=== PATIENT | female | born 1965 | race Caucasian/White ===

== ENCOUNTER 2022-05-11 11:01 | Emergency (ER) | payer OTHER ==
[~2022-05-11] VITALS: Ht 175.3 cm; Wt 83.9 kg
--- NOTE | 2022-05-11 11:10 | NUR ---
RECEIVED PT 57 YRS FEMALE CAME FROM HOME ACCOMPAY BY BOUGHTER c/o lower abdominal pain for 2 days
--- NOTE | 2022-05-11 11:14 | NUR ---
URINE SAMPLE COLLECTED
--- NOTE | 2022-05-11 11:20 | NUR ---
SEEN BY DR FLORES
--- NOTE | 2022-05-11 11:31 | NUR ---
BLOOD DROW BY LAB AT BED SIDE
[2022-05-11 11:37] LABS: BASOPHILS % (AUTO) 0.4 % (0.0-2.0); EOSINOPHILS % (AUTO) 0.3 % (0.0-6.0); HEMATOCRIT 37 % (33-45); HEMOGLOBIN 11.9 g/dL (11.5-14.8); LYMPHOCYTES % (AUTO) 34.4 % (20.0-44.0); MEAN CORPUSCULAR HGB CONC 33 g/dl (31.0-36.0); MEAN CORPUSCULAR VOLUME 81 fL (82-100); MONOCYTES # (AUTO) 0.3 K/uL (0.1-1.30); MONOCYTES % (AUTO) 5.7 % (2.0-12.0); NEUTROPHILS # (AUTO) 3.4 K/uL (1.8-8.9); NEUTROPHILS % (AUTO) 59.2 % (43.0-81.0); PLATELET COUNT (AUTO) 308 K/uL (150-450); RED BLOOD CELL COUNT(AUTO) 4.51 MIL/uL (4.0-5.2); WHITE BLOOD COUNT (AUTO) 5.7 K/uL (4.3-11.0)
--- NOTE | 2022-05-11 11:52 | NUR ---
TO CT SCAN OF ABDOMIN VIA DIANA
[2022-05-11 11:56] LABS: BILIRUBIN,URINE NEGATIVE (NEGATIVE); COLOR,URINE YELLOW (YELLOW); LEUKOCYTE ESTERASE ,URINE SMALL (NEGATIVE); NITRITE, URINE POSITIVE (NEGATIVE); PH,URINE 5.5 (5.0-8.0); PROTEIN,URINE NEGATIVE (NEGATIVE); UGLUCOSE NEGATIVE (NEGATIVE); UROBILINOGEN,URINE 0.2 EU/dL (0.2)
[2022-05-11 11:56] LABS: CALCIUM, SERUM 8.9 mg/dL (8.5-10.1); CREATININE 0.9 mg/dL (0.6-1.3); POTASSIUM 4.6 mmol/L (3.5-5.1)
--- NOTE | 2022-05-11 12:00 | NUR ---
BACK FROM CT SCAN DONE
[2022-05-11 12:08] LABS: ALBUMIN 3.1 g/dL (3.4-5.0); BILIRUBIN,DIRECT 0.1 mg/dL (0.0-0.2); BILIRUBIN,TOTAL 0.3 mg/dL (0.2-1.0); TOTAL PROTEIN, SERUM 7.6 g/dL (6.4-8.2)
[2022-05-11 12:16] LABS: BACTERIA,URINE Many /HPF (None Seen); SQUAMOUS EPITHELIAL CELL,UR Moderate /HPF (None Seen)
[2022-05-11] MEDS ORDERED: IBUPROFEN 600 MG TABLET ONE ×2 (13:18→13:21)
[2022-05-11] MEDS ORDERED: CEPHALEXIN MONOHYDRATE 500 MG CAPSULE PO ONE ×2 (13:18→13:30)
[2022-05-11] MEDS ORDERED: IBUP-1955 PO (13:22)
[2022-05-11] MEDS ORDERED: CEPH500C2 PO (13:22)
[2022-05-11] MEDS ORDERED: IBUPROFEN 600 MG TABLET PO ONE (13:30)
--- NOTE | 2022-05-11 13:40 | NUR ---
dinese pain d/c instraction given to pt fully and verblized understood d/chome stable condition
[2022-05-11 13:46] VITALS: BP 162/89
== END 2022-05-11 13:47 | disposition home or self-care (01) ==
LOC: ER 11:09
DX: N39.0 Urinary tract infection, site not specified (principal)
CPT/HCPCS: 36415; 80048-TC; 80076-TC; 81001; 83690-TC; 85025-TC; 87086-TC; 87186-TC

== ENCOUNTER → 2024-03-30 | Emergency (ER) | payer OTHER ==
[~2024-03-30] VITALS: Ht 180.3 cm; Wt 90.7 kg
[~2024-03-30] MED LIST: AMOX-430 PO; CEPH500C2 PO; IBUP-1955 PO; PIPERACI/TAZO 3.375GM/D5W 50ML PB IV ONE; POTA-88 PO; POTASSIUM CHLORIDE 20 MEQ TAB.PRT.SR PO ONE
[2024-03-30 15:07] LABS: BASOPHILS % (AUTO) 0.1 % (0.0-2.0); EOSINOPHILS % (AUTO) 0.1 % (0.0-6.0); HEMATOCRIT 43 % (33-45); HEMOGLOBIN 14.4 g/dL (11.5-14.8); LYMPHOCYTES # (AUTO) 0.8 K/uL (0.8-4.8); LYMPHOCYTES % (AUTO) 6.6 % (20.0-44.0); MEAN CORPUSCULAR HEMOGLOBIN 28 PG (26.0-33.0); MEAN CORPUSCULAR HGB CONC 34 g/dl (31.0-36.0); MEAN CORPUSCULAR VOLUME 83 fL (82-100); MONOCYTES # (AUTO) 0.4 K/uL (0.1-1.30); MONOCYTES % (AUTO) 3.3 % (2.0-12.0); NEUTROPHILS # (AUTO) 10.4 K/uL (1.8-8.9); NEUTROPHILS % (AUTO) 89.9 % (43.0-81.0); PLATELET COUNT (AUTO) 338 K/uL (150-450); RED BLOOD CELL COUNT(AUTO) 5.18 MIL/uL (4.0-5.2); RED CELL DISTRIBUTION WIDTH 13.6 % (11.5-15.0); WHITE BLOOD COUNT (AUTO) 11.6 K/uL (4.3-11.0)
[2024-03-30] MEDS: IV NS 0.9% 1,000 ML BAG IV ONE (15:17)
[2024-03-30 15:25] LABS: CALCIUM, SERUM 9.2 mg/dL (8.5-10.1); CREATININE 1.5 mg/dL (0.6-1.3)
[2024-03-30 15:31] LABS: BILIRUBIN,DIRECT 0.4 mg/dL (0.0-0.2); BILIRUBIN,TOTAL 0.7 mg/dL (0.2-1.0); TOTAL PROTEIN, SERUM 8.5 g/dL (6.4-8.2)
[2024-03-30] MEDS: POTASSIUM CHLORIDE 20 MEQ TAB.PRT.SR PO ONE (16:20)
[2024-03-30] MEDS: PIPERACILLIN /TAZOBACTAM 3.375 G in IV D5W 50 ML IV ONE (16:30)
[2024-03-30 17:12] VITALS: BP 124/76; TEMP 97.7; O2SAT 97
== END | disposition home or self-care (01) ==
LOC: ER 14:15
DX: A09 Infectious gastroenteritis and colitis, unspecified (principal); E87.6 Hypokalemia; R10.9 Unspecified abdominal pain
CPT/HCPCS: 99284; 96365; 96361; 87045; 85025; 80048; 83690; 80076; 36415; 89055; J2543 ×2; J7060; J7030